=== PATIENT | female | born 1930 | race African-American/Black ===

== ENCOUNTER 2021-09-03 13:36 | Inpatient (IN) | payer OTHER, MEDICAID ==
[2021-09-03] MEDS ORDERED: Senokot S 8.6-50 MG TAB PO PRN (17:00)
[2021-09-03] MEDS ORDERED: Ondansetron ODT 4 MG TAB PO PRN (17:00)
[2021-09-03] MEDS ORDERED: clonazePAM 1 MG TAB PO PRN (17:07)
[2021-09-03] MEDS: Famotidine 20 MG TAB PO SCH (21:49)
[2021-09-03] MEDS: clonazePAM 1 MG TAB PO SCH (21:50)
[2021-09-04] MEDS: clonazePAM 1 MG TAB PO SCH ×2 (08:39→21:24)
[2021-09-04] MEDS: DULoxetine 30 MG CAP PO SCH (08:40)
[2021-09-04] MEDS: Famotidine 20 MG TAB PO SCH ×2 (08:40→21:24)
[2021-09-04] MEDS: Lisinopril 5 MG TAB PO SCH (08:40)
[2021-09-04] MEDS: Carvedilol 3.125 MG TAB PO SCH ×2 (08:40→18:09)
[2021-09-04] MEDS: Polyethylene Glycol 3350 17 GM Packet PO SCH (08:41)
[2021-09-04] MEDS ORDERED: FLU VACC QS2021-22(65YR UP)/PF 240 MCG/0.7 ML SYRINGE IM ONE (09:00)
[2021-09-04 09:20] LABS: #Basophils 0.1 thou/uL (0.0-0.2); #Lymphocytes 1.1 thou/uL (1.20-3.40); #Monocytes 1.3 thou/uL (0.11-0.59); #Neutrophils 8.6 thou/uL (1.40-6.50); %Basophils 0.5 % (0.0-1.0); %Eosinophils 0.2 % (0.0-10.0); %Lymphocytes 9.8 % (21.0-51.0); %Monocytes 11.5 % (0.0-10.0); Hemoglobin 10.4 g/dL (12.0-16.0); Mean Corpuscular HGB CONC 31.7 g/dL (32.0-36.0); Mean Corpuscular Hemoglobin 26.1 pg (27.0-31.0); Mean Corpuscular Volume 82.3 fL (78.0-98.0); Mean Platelet Volume 6.8 fL (7.4-10.4); Platelet Count 363 thou/uL (130-400); White Blood Cell (WBC) Count 11.1 thou/uL (4.8-10.8)
[2021-09-04 09:42] LABS: Anion Gap 13 mmol/L (10-20); BUN (Urea Nitrogen) 12 mg/dL (9.8-20.1); Calc. Creatinine Clearance 50 mL/min (70-130); Carbon Dioxide 21 mmol/L (23-31); Chloride 108 mmol/L (98-107); Glucose 90 mg/dL (83-110); Potassium 3.6 mmol/L (3.5-5.1); Sodium 138 mmol/L (136-145)
[2021-09-04] MEDS ORDERED: Ondansetron ODT 4 MG TAB SL PRN (13:15)
[2021-09-05] MEDS: Carvedilol 3.125 MG TAB PO SCH ×2 (09:42→17:47)
[2021-09-05] MEDS: DULoxetine 30 MG CAP PO SCH (09:42)
[2021-09-05] MEDS: clonazePAM 1 MG TAB PO SCH ×2 (09:42→22:04)
[2021-09-05] MEDS: Famotidine 20 MG TAB PO SCH ×2 (09:42→22:04)
[2021-09-05] MEDS: Polyethylene Glycol 3350 17 GM Packet PO SCH (09:43)
[2021-09-05] MEDS: Lisinopril 5 MG TAB PO SCH (09:43)
[2021-09-05] MEDS: Acetaminophen 325 MG TAB PO PRN (22:05)
[2021-09-06] MEDS: DULoxetine 30 MG CAP PO SCH (09:14)
[2021-09-06] MEDS: Polyethylene Glycol 3350 17 GM Packet PO SCH (09:14)
[2021-09-06] MEDS: Famotidine 20 MG TAB PO SCH ×2 (09:14→21:25)
[2021-09-06] MEDS: Carvedilol 3.125 MG TAB PO SCH ×2 (09:15→17:28)
[2021-09-06] MEDS: Lisinopril 5 MG TAB PO SCH (09:15)
[2021-09-06] MEDS: clonazePAM 1 MG TAB PO SCH (09:15)
[2021-09-06] MEDS: Acetaminophen 325 MG TAB PO PRN (12:58)
[2021-09-06] MEDS ORDERED: clonazePAM 0.5 MG TAB PO SCH (21:00)
[2021-09-07] MEDS ORDERED: traMADol HCl 50 MG TAB PO SCH (08:15)
[2021-09-07] MEDS: Carvedilol 3.125 MG TAB PO SCH ×2 (09:36→17:41)
[2021-09-07] MEDS: DULoxetine 30 MG CAP PO SCH (09:36)
[2021-09-07] MEDS: Lisinopril 5 MG TAB PO SCH (09:36)
[2021-09-07] MEDS: Famotidine 20 MG TAB PO SCH ×2 (09:39→21:27)
[2021-09-07] MEDS: Polyethylene Glycol 3350 17 GM Packet PO SCH (09:39)
[2021-09-07] MEDS: Acetaminophen 325 MG TAB PO PRN (09:42)
[2021-09-08 07:10] LABS: #Basophils 0.1 thou/uL (0.0-0.2); #Eosinphils 0.1 thou/uL (0.0-0.7); #Lymphocytes 1.6 thou/uL (1.20-3.40); #Monocytes 0.9 thou/uL (0.11-0.59); #Neutrophils 6.4 thou/uL (1.40-6.50); %Basophils 0.6 % (0.0-1.0); %Eosinophils 1.2 % (0.0-10.0); %Lymphocytes 17.9 % (21.0-51.0); %Monocytes 10.2 % (0.0-10.0); %Neutrophils 70.2 % (42.0-75.0); Hemoglobin 10.2 g/dL (12.0-16.0); Mean Corpuscular HGB CONC 32.4 g/dL (32.0-36.0); Mean Corpuscular Hemoglobin 26.8 pg (27.0-31.0); Mean Corpuscular Volume 82.8 fL (78.0-98.0); Mean Platelet Volume 6.9 fL (7.4-10.4); Platelet Count 385 thou/uL (130-400); RBC Distribution Width 14.1 % (11.5-14.5); Red Blood Cell (RBC) Count 3.79 mill/uL (4.20-5.40); White Blood Cell (WBC) Count 9.1 thou/uL (4.8-10.8)
[2021-09-08 07:13] LABS: Anion Gap 15 mmol/L (10-20); BUN (Urea Nitrogen) 15 mg/dL (9.8-20.1); Calc. Creatinine Clearance 46 mL/min (70-130); Calcium 9.1 mg/dL (7.8-10.44); Carbon Dioxide 24 mmol/L (23-31); Chloride 106 mmol/L (98-107); Glucose 87 mg/dL (83-110); Potassium 4.6 mmol/L (3.5-5.1); Sodium 140 mmol/L (136-145)
[2021-09-08] MEDS: Famotidine 20 MG TAB PO SCH ×2 (08:26→20:32)
[2021-09-08] MEDS: Lisinopril 5 MG TAB PO SCH (08:26)
[2021-09-08] MEDS: DULoxetine 30 MG CAP PO SCH (08:26)
[2021-09-08] MEDS: Carvedilol 3.125 MG TAB PO SCH ×2 (08:26→17:11)
[2021-09-08] MEDS: Polyethylene Glycol 3350 17 GM Packet PO SCH (08:27)
[2021-09-09] MEDS: Carvedilol 3.125 MG TAB PO SCH ×2 (08:18→17:25)
[2021-09-09] MEDS: DULoxetine 30 MG CAP PO SCH (08:18)
[2021-09-09] MEDS: Famotidine 20 MG TAB PO SCH ×2 (08:19→20:35)
[2021-09-09] MEDS: Lisinopril 5 MG TAB PO SCH (08:19)
[2021-09-09] MEDS: Polyethylene Glycol 3350 17 GM Packet PO SCH (08:23)
[2021-09-09] MEDS: Acetaminophen 325 MG TAB PO PRN (17:25)
[2021-09-10] MEDS: Famotidine 20 MG TAB PO SCH ×2 (08:49→20:23)
[2021-09-10] MEDS: Lisinopril 5 MG TAB PO SCH (08:50)
[2021-09-10] MEDS: DULoxetine 30 MG CAP PO SCH (08:50)
[2021-09-10] MEDS: Carvedilol 3.125 MG TAB PO SCH ×2 (08:50→16:57)
[2021-09-10] MEDS: Polyethylene Glycol 3350 17 GM Packet PO SCH (08:56)
[2021-09-11 08:54] VITALS: TEMP 97.8
[2021-09-11] MEDS: Acetaminophen 325 MG TAB PO PRN (09:05)
[2021-09-11] MEDS: Famotidine 20 MG TAB PO SCH ×2 (09:06→20:53)
[2021-09-11] MEDS: Carvedilol 3.125 MG TAB PO SCH ×2 (09:06→15:56)
[2021-09-11] MEDS: Lisinopril 5 MG TAB PO SCH (09:06)
[2021-09-11] MEDS: DULoxetine 30 MG CAP PO SCH (09:06)
[2021-09-11] MEDS: Polyethylene Glycol 3350 17 GM Packet PO SCH (09:08)
[2021-09-12 05:48] VITALS: BMI 19.3
[2021-09-12 11:37] VITALS: BP 165/83
[2021-09-12] MEDS: DULoxetine 30 MG CAP PO SCH (11:43)
[2021-09-12] MEDS: Carvedilol 3.125 MG TAB PO SCH (11:43)
[2021-09-12] MEDS: Famotidine 20 MG TAB PO SCH (11:43)
[2021-09-12] MEDS: Lisinopril 5 MG TAB PO SCH (11:43)
[2021-09-12] MEDS: Polyethylene Glycol 3350 17 GM Packet PO SCH (11:45)
[2021-09-12] MEDS ORDERED: Bacitracin Zinc Ointment 30 gm TUBE ONE (13:29)
[2021-09-12] MEDS ORDERED: Lidocaine 0.5%/Epinephrine 1:200,000 50 ml Vial ONE (13:29)
[2021-09-12] MEDS ORDERED: Thrombin 5000 UNITS/5 ML VIAL ONE (13:29)
[2021-09-12] MEDS ORDERED: Ketamine 50 MG/ML (10ML VIAL) ONE (13:42)
[2021-09-12] MEDS ORDERED: ceFAZolin 2 GM/Dextrose 50 ML IVPB ONE (13:47)
== END 2021-09-12 10:15 | disposition short-term general hospital (02) | DRG 947 ==
LOC: NAV ACUTE 19:55
PROVIDERS: ADMIT Family Medicine; ATTEND Family Medicine
PROC: 8E0ZXY6 Isolation (ICD-10-PCS; principal; 2021-09-03)
DX: R53.81 Other malaise (principal); U07.1 COVID-19; I10 Essential (primary) hypertension; I25.10 Atherosclerotic heart disease of native coronary artery without angina pectoris; F03.90 Unspecified dementia, unspecified severity, without behavioral disturbance, psychotic disturbance, mood disturbance, and anxiety; F41.9 Anxiety disorder, unspecified; F32.A Depression, unspecified; E78.5 Hyperlipidemia, unspecified; Z88.1 Allergy status to other antibiotic agents; Z88.2 Allergy status to sulfonamides; Z88.8 Allergy status to other drugs, medicaments and biological substances; Z95.0 Presence of cardiac pacemaker; Z95.1 Presence of aortocoronary bypass graft; Z95.5 Presence of coronary angioplasty implant and graft; Z87.891 Personal history of nicotine dependence
CPT/HCPCS: 80048; 85025; J0690; J2001

== ENCOUNTER 2021-09-12 10:21 | Emergency (ER) | payer MEDICARE, MEDICAID ==
[2021-09-12 11:01] LABS: #Basophils 0.1 thou/uL (0.0-0.2); #Lymphocytes 1.4 thou/uL (1.20-3.40); #Monocytes 1.5 thou/uL (0.11-0.59); #Neutrophils 9.2 thou/uL (1.40-6.50); %Basophils 1.1 % (0.0-1.0); %Eosinophils 0.1 % (0.0-10.0); %Lymphocytes 11.3 % (21.0-51.0); %Monocytes 12.5 % (0.0-10.0); Hemoglobin 11.7 g/dL (12.0-16.0); Mean Corpuscular HGB CONC 31.9 g/dL (32.0-36.0); Mean Corpuscular Hemoglobin 25.8 pg (27.0-31.0); Mean Corpuscular Volume 80.8 fL (78.0-98.0); Mean Platelet Volume 8.2 fL (7.4-10.4); Platelet Count 495 thou/uL (130-400); RBC Distribution Width 14.6 % (11.5-14.5); Red Blood Cell (RBC) Count 4.53 mill/uL (4.20-5.40); White Blood Cell (WBC) Count 12.3 thou/uL (4.8-10.8)
[2021-09-12 11:17] LABS: ALT (SGPT) 6 U/L (8-55); AST (SGOT) 14 U/L (5-34); Albumin 3.2 g/dL (3.4-4.8); Alkaline Phosphatase 109 U/L (40-110); Anion Gap 16 mmol/L (10-20); BUN (Urea Nitrogen) 8 mg/dL (9.8-20.1); Bilirubin, Total 0.9 mg/dL (0.2-1.2); Calc. Creatinine Clearance 0 mL/min (70-130); Calcium 9.6 mg/dL (7.8-10.44); Carbon Dioxide 25 mmol/L (23-31); Chloride 101 mmol/L (98-107); Globulin 5.6 g/dL (2.4-3.5); Glucose 107 mg/dL (83-110); Potassium 4.1 mmol/L (3.5-5.1); Protein, Total 8.8 g/dL (5.8-8.1); Sodium 138 mmol/L (136-145)
== END 2021-09-12 12:15 | disposition short-term general hospital (02) ==
LOC: NAV ERS 10:21
DX: S06.5X9A Traumatic subdural hemorrhage with loss of consciousness of unspecified duration, initial encounter (principal); R29.718 NIHSS score 18; I49.3 Ventricular premature depolarization; I10 Essential (primary) hypertension; X58.XXXA Exposure to other specified factors, initial encounter; Z87.19 Personal history of other diseases of the digestive system
CPT/HCPCS: 70450; 80053; 85025; 93005